=== PATIENT | male | born 1955 | race Caucasian/White ===

== ENCOUNTER 2020-08-05 14:35 | Emergency (ER) | payer BC, MEDICARE ==
--- NOTE | 2020-08-05 15:23 | EDM.PDOC ---
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 His heart was racing (checked pulse at 101) and felt like he was going to pass out. He then had non-radiating sharp left sided chest pain, which resolved after 5 minutes. He was subsequently treated in clinic. BP was 76/40, he was given IVF and sent to the ED to check a troponin. Patient feels better and has had no recurrence of the chest pain. He denies prior h/o CAD. FMHx is significant for CAD though. Denies SOB, cough, or nausea. Onset: Today Location: Reports: Chest Treatments HAND TWISTER: Reports: EKG Past Medical History - Past Health History Medical/Surgical History: Denies Medical/Surgical History ED ROS GENERAL - Review of Systems Review Of Systems: Comprehensive ROS is negative, except as noted in HPI. ED EXAM, GENERAL - Physical Exam Exam: See Below Exam Limited By: No Limitations General Appearance: Alert, WD/WN, No Apparent Distress Nose: Normal Inspection Throat/Mouth: No Airway Compromise Head: Atraumatic, Normocephalic Neck: Full Range of Motion Respiratory/Chest: No Respiratory Distress, Lungs Clear, Normal Breath Sounds, Chest Non-Tender Cardiovascular: Regular Rate, Rhythm, No Murmur GI/Abdominal: Non-Tender Back Exam: Full Range of Motion Extremities: Normal Inspection Neurological: Alert, Oriented, Normal Cognition Psychiatric: Normal Affect, Normal Mood Skin Exam: Warm, Dry, Intact #1 Interpretation EKG Date: 08/05/20 Time: 14:38 Rhythm: NSR Rate (Beats/Min): 63 [place]: Normal P-Wave: Present QRS: Normal ST-T: Normal QT: Normal Comparison: No Change (06/03/2020) Course - Vital Signs Last Recorded V/S: Last Vital Signs Temp 37.1 C 08/05/20 14:35 Pulse 66 08/05/20 14:35 Resp 18 08/05/20 14:35 BP 101/62 08/05/20 14:35 Pulse Ox 97 08/05/20 14:35 - Orders/Labs/Meds Orders: Active Orders 24 hr Category Date Time Status EKG Documentation Completion [RC] ASDIRECTED Care 08/05/20 14:41 Active CXR [Chest 1V Frontal] [CR] Stat Exams 08/05/20 14:41 Taken EKG 12 Lead [EK] Stat Ther 08/05/20 14:41 Ordered Labs: Laboratory Tests 08/05/20 08/05/20 08/05/20 Range/Units 14:50 14:50 14:50 WBC 5.1 (3.2-10.1) x10-3/uL RBC 4.37 (3.90-5.90) x10(6)uL Hgb 13.4 (12.9-17.7) g/dL Hct 40.2 (38.3-50.1) % MCV 92.0 (80.8-98.7) fL MCH 30.7 (27.0-33.3) pg MCHC 33.4 (28.7-35.3) g/dL RDW 13.5 (12.4-15.0) % Plt Count 276 (117-477) x10(3)uL MPV 7.4 (6.7-11.0) fL Neut % (Auto) 60.3 (40.3-71.8) % Lymph % (Auto) 26.4 (15.8-45.3) % Cherry % (Auto) 8.8 (5.5-15.2) % Eos % (Auto) 2.7 (0.1-6.8) % Baso % (Auto) 1.8 (0.3-3.8) % Neut # (Auto) 3.1 (1.7-6.9) x10-3/uL Lymph # (Auto) 1.4 (0.5-4.5) x10-3/uL Cherry # (Auto) 0.5 (0.0-1.2) x10-3/uL Eos # (Auto) 0.1 (0.0-0.6) x10-3/uL Baso # (Auto) 0.1 (0.0-0.3) x10-3/uL Sodium 139 (135-145) mmol/L Potassium 4.0 (3.5-5.3) mmol/L Chloride 103 (100-110) mmol/L Carbon Dioxide 27 (21-32) mmol/L BUN 10 (7-18) mg/dL Creatinine 1.3 (0.70-1.30) mg/dL Est Cr Clr Drug Dosing 55.23 mL/min Estimated GFR (MDRD) 55 L (>60) BUN/Creatinine Ratio 7.7 L (9-20) Glucose 92 (80-116) mg/dL Calcium 8.5 L (8.6-10.2) mg/dL Troponin I 4.3 (4.0-60.3) pg/mL - Radiology Interpretation Free Text/Narrative:: CXR: No acute process (ED provider interpretation) Departure - Departure Time of Disposition: 15:29 Disposition: Home, Self-Care 01 Condition: Good Clinical Impression: Near syncope, Atypical chest pain - Discharge Information *PRESCRIPTION DRUG MONITORING PROGRAM REVIEWED*: No *COPY OF PRESCRIPTION DRUG MONITORING REPORT IN PATIENT NEELA: Not Applicable Instructions: Nonspecific Chest Pain, Adult, [id number], Near-Syncope, [id number] Referrals: Steve Rand MD [Physician] - 2 Days Forms: ED Department Discharge Additional Instructions: Rest, drink plenty of fluids. Follow up with your primary physician in 2 days. Return to the ER as needed. Sepsis Event Note (ED) - Evaluation Sepsis Screening Result: No Definite Risk - Focused Exam Vital Signs: Vital Signs Temp Pulse Resp BP Pulse Ox 08/05/20 14:35 37.1 C 66 18 101/62 97 - My Orders Last 24 Hours: My Active Orders 08/05/20 14:41 EKG Documentation Completion [RC] ASDIRECTED CXR [Chest 1V Frontal] [CR] Stat EKG 12 Lead [EK] Stat - Assessment/Plan Last 24 Hours: My Active Orders 08/05/20 14:41 EKG Documentation Completion [RC] ASDIRECTED CXR [Chest 1V Frontal] [CR] Stat EKG 12 Lead [EK] Stat
--- NOTE | 2020-08-05 17:06 | CR ---
INDICATION: Left-sided chest pain. CHEST ONE VIEW: Two AP upright portable views of the chest were obtained 08/05/20 and reveal the heart to be normal in size and shape. The mediastinum was essentially unremarkable. Bony structures appear to be fairly intact. An active infiltrate or effusion was not identified. Overlying EKG leads are noted. IMPRESSION: No acute process. MTDD
== END 2020-08-05 15:51 | disposition home or self-care (01) ==
LOC: FB.ED 14:35
DX: R07.89 Other chest pain (principal); R55 Syncope and collapse
CPT/HCPCS: 36415; 71045; 80048; 84484; 85025; 93005; 93010; 99284; 99285-25

== ENCOUNTER 2020-08-30 11:19 | Emergency (ER) | payer MEDICARE ==
[2020-08-30] MEDS ORDERED: Sodium Chloride 0.9% 1,000 ML IV ONE (11:50)
--- NOTE | 2020-08-30 11:58 | EDM.PDOC ---
ED HPI GENERAL MEDICAL PROBLEM - General Chief Complaint: Chest Pain Stated Complaint: HEART COMPLICATIONS Time Seen by Provider: 08/30/20 11:20 Source of Information: Reports: Patient History Limitations: Reports: No Limitations - History of Present Illness INITIAL COMMENTS - FREE TEXT/NARRATIVE: c/o fatigue pt up at 5a, no bfast, went to work at 6:30a at [employer] where he has worked for 20y, on his feet working, hot, fans, no AC at work had a slight DUVALL on getting up today and took APAP x 2, still with slight DUVALL he drank 3 cups coffee today, no food, no other fluids in mid morning he was hot, dizzy, sweat, sob. He left work and went to walk-in clinic, saw Dr Pierre who sent him here for further evaluation temp 99.9 at clinic c/w heat exhaustion, no inc'd temp here says he is feeling better has had discomfort at one location in his mid back without radiation for past week, lifts at work, thinks he pulled something pt seen one month ago in ED for dehyradation, trop 4.3 then, HR 1001 and BP 76/40 on presentation, had L sided CP that resolved quickly then pt saw PCP Dr Gomez 1m ago after ED visit who recommended ASA 81/d which pt has not been taking no prior CV hx, has had pneumonia in the past, smokes 1/2 ppd x 20y SH: lives with sister who is not ill FH: positive for CAD in family including parents CxR 2v at clinic reviewed by Dr Cook who c/w 1m ago and dx COPD exacerbation with inc'd flattening of diaphragms, no infiltrates, no congestion not orthostatic in clinic, BP 108/48 HR 77 supine, BP 102/60 HR 82 stand, PO 97% - Related Data Allergies Allergy/AdvReac Type Severity Reaction Status Date / Time Penicillins Allergy Cannot Verified 08/30/20 11:42 Remember Home Meds: Home Meds Azithromycin 250 mg PO DAILY #4 tablet 08/30/20 [Rx] predniSONE 20 mg PO ASDIRECTED #7 tab 08/30/20 [Rx] Past Medical History - Past Health History Medical/Surgical History: Denies Medical/Surgical History HEENT History: Reports: Cataract Cardiovascular History: Reports: Other (See Below) Other Cardiovascular History: hx low BP Respiratory History: Reports: Sleep Apnea Gastrointestinal History: Reports: GERD Musculoskeletal History: Reports: Fracture Other Musculoskeletal History: hx R wrist, L 5th digit fx - Infectious Disease History Infectious Disease History: Reports: Chicken Pox, Measles, Mumps - Past Surgical History Head Surgeries/Procedures: Reports: None Musculoskeletal Surgical History: Reports: Carpal Tunnel Other Musculoskeletal Surgeries/Procedures:: R carpal tunnel, R hand surgery x 2 Social & Family History - Family History Family Medical History: No Pertinent Family History - Caffeine Use Caffeine Use: Reports: Coffee, Soda ED ROS GENERAL - Review of Systems Review Of Systems: See Below Constitutional: Reports: No Symptoms, Weakness HEENT: Reports: No Symptoms Respiratory: Reports: No Symptoms Cardiovascular: Reports: No Symptoms. Denies: Chest Pain Endocrine: Reports: No Symptoms GI/Abdominal: Reports: No Symptoms : Reports: No Symptoms Musculoskeletal: Reports: Back Pain Skin: Reports: No Symptoms Neurological: Reports: No Symptoms Psychiatric: Reports: No Symptoms Hematologic/Lymphatic: Reports: No Symptoms Immunologic: Reports: No Symptoms ED EXAM, GENERAL - Physical Exam Exam: See Below Exam Limited By: No Limitations General Appearance: Alert, WD/WN, Other (alert, pleasant, good eye contact, normal speech, nontoxic, does appear fatigued and dehydrated) Eye Exam: Bilateral Eye: EOMI, PERRL Ears: Hearing Grossly Normal Nose: Normal Inspection Throat/Mouth: Normal Inspection, Normal Lips, Normal Voice Head: Atraumatic, Normocephalic Neck: Supple, Non-Tender. No: Lymphadenopathy (R), Lymphadenopathy (L) Respiratory/Chest: No Respiratory Distress, Lungs Clear, Normal Breath Sounds, No Accessory Muscle Use, Chest Non-Tender Cardiovascular: Regular Rate, Rhythm, No Edema, No Murmur GI/Abdominal: Normal Bowel Sounds, Soft, Non-Tender, No Distention Extremities: Normal Inspection, Non-Tender, No Pedal Edema Neurological: Alert, Oriented, CN II-XII Intact, Normal Cognition, No Motor/Sensory Deficits Psychiatric: Normal Affect, Normal Mood Skin Exam: Warm, Dry, Intact, Normal Color, No Rash, Other (mild dec'd turgor UEs without tenting) Lymphatic: No Adenopathy #1 Interpretation EKG Date: 08/30/20 Time: 11:24 Rhythm: NSR Rate (Beats/Min): 78 [place]: Normal P-Wave: Present QRS: Normal ST-T: Normal QT: Normal (no change c/w clinic today and ED 08-05-20) Course - Vital Signs Last Recorded V/S: Last Vital Signs Temp 36.9 C 08/30/20 11:20 Pulse 80 08/30/20 12:17 Resp 14 08/30/20 12:17 BP 108/65 08/30/20 12:17 Pulse Ox 96 08/30/20 12:17 - Orders/Labs/Meds Orders: Active Orders 24 hr Category Date Time Status EKG Documentation Completion [RC] ASDIRECTED Care 08/30/20 11:32 Active Sodium Chloride 0.9% [Normal Saline] 1,000 ml Med 08/30/20 11:50 Ordered IV .BOLUS EKG 12 Lead [EK] Routine Ther 08/30/20 11:32 Ordered Medication Orders Sodium Chloride (Normal Saline) 1,000 mls @ 999 mls/hr IV .BOLUS ONE Stop: 08/30/20 12:50 Last Admin: 08/30/20 11:54 Dose: 999 mls/hr Documented by: SOLOMON Labs: Laboratory Tests 08/30/20 08/30/20 08/30/20 Range/Units 12:02 12:02 12:02 WBC 6.3 (3.2-10.1) x10-3/uL RBC 4.25 (3.90-5.90) x10(6)uL Hgb 13.1 (12.9-17.7) g/dL Hct 38.3 (38.3-50.1) % MCV 90.2 (80.8-98.7) fL MCH 30.7 (27.0-33.3) pg MCHC 34.1 (28.7-35.3) g/dL RDW 13.5 (12.4-15.0) % Plt Count 223 (117-477) x10(3)uL MPV 6.9 (6.7-11.0) fL Neut % (Auto) 77.2 H (40.3-71.8) % Lymph % (Auto) 11.0 L (15.8-45.3) % [place] % (Auto) 10.9 (5.5-15.2) % Eos % (Auto) 0.1 (0.1-6.8) % Baso % (Auto) 0.8 (0.3-3.8) % Neut # (Auto) 4.9 (1.7-6.9) x10-3/uL Lymph # (Auto) 0.7 (0.5-4.5) x10-3/uL Ada # (Auto) 0.7 (0.0-1.2) x10-3/uL Eos # (Auto) 0.0 (0.0-0.6) x10-3/uL Baso # (Auto) 0.1 (0.0-0.3) x10-3/uL Sodium 140 (135-145) mmol/L Potassium 4.1 (3.5-5.3) mmol/L Chloride 99 L (100-110) mmol/L Carbon Dioxide 30 (21-32) mmol/L BUN 14 (7-18) mg/dL Creatinine 1.1 (0.70-1.30) mg/dL Est Cr Clr Drug Dosing 66.11 mL/min Estimated GFR (MDRD) > 60 (>60) BUN/Creatinine Ratio 12.7 (9-20) Glucose 93 (80-116) mg/dL Calcium 8.3 L (8.6-10.2) mg/dL Magnesium 1.9 (1.8-2.5) mg/dL Total Bilirubin 0.4 (0.1-1.3) mg/dL AST 19 (5-25) IU/L ALT 25 (12-36) U/L Alkaline Phosphatase 84 (56-112) IU/L Troponin I (4.0-60.3) pg/mL C-Reactive Protein (0.5-0.9) mg/dL Total Protein 6.8 (6.0-8.0) g/dL Albumin 3.5 (3.2-4.6) g/dL Globulin 3.3 g/dL Albumin/Globulin Ratio 1.1 Urine Color Yellow (YELLOW) Urine Appearance Clear (CLEAR) Urine pH 6.0 (5.0-6.5) Ur Specific Lucas 1.010 (1.010-1.025) Urine Protein Negative (NEGATIVE) mg/dL Urine Glucose (UA) Normal (NORMAL) mg/dL Urine Ketones Negative (NEGATIVE) mg/dL Urine Occult Blood Negative (NEGATIVE) Urine Nitrite Negative (NEGATIVE) Urine Bilirubin Negative (NEGATIVE) Urine Urobilinogen Normal (NEGATIVE) mg/dL Ur Leukocyte Esterase Negative (NEGATIVE) Urine WBC 0-5 (0-5) Ur Squamous Epith Cells Occasional (NS,R,O) Urine Bacteria Few H (NS) 08/30/20 Range/Units 12:02 WBC (3.2-10.1) x10-3/uL RBC (3.90-5.90) x10(6)uL Hgb (12.9-17.7) g/dL Hct (38.3-50.1) % MCV (80.8-98.7) fL MCH (27.0-33.3) pg MCHC (28.7-35.3) g/dL RDW (12.4-15.0) % Plt Count (117-477) x10(3)uL MPV (6.7-11.0) fL Neut % (Auto) (40.3-71.8) % Lymph % (Auto) (15.8-45.3) % [place] % (Auto) (5.5-15.2) % Eos % (Auto) (0.1-6.8) % Baso % (Auto) (0.3-3.8) % Neut # (Auto) (1.7-6.9) x10-3/uL Lymph # (Auto) (0.5-4.5) x10-3/uL [place] # (Auto) (0.0-1.2) x10-3/uL Eos # (Auto) (0.0-0.6) x10-3/uL Baso # (Auto) (0.0-0.3) x10-3/uL Sodium (135-145) mmol/L Potassium (3.5-5.3) mmol/L Chloride (100-110) mmol/L Carbon Dioxide (21-32) mmol/L BUN (7-18) mg/dL Creatinine (0.70-1.30) mg/dL Est Cr Clr Drug Dosing mL/min Estimated GFR (MDRD) (>60) BUN/Creatinine Ratio (9-20) Glucose (80-116) mg/dL Calcium (8.6-10.2) mg/dL Magnesium (1.8-2.5) mg/dL Total Bilirubin (0.1-1.3) mg/dL AST (5-25) IU/L ALT (12-36) U/L Alkaline Phosphatase (56-112) IU/L Troponin I < 4.0 L (4.0-60.3) pg/mL C-Reactive Protein 3.8 H* (0.5-0.9) mg/dL Total Protein (6.0-8.0) g/dL Albumin (3.2-4.6) g/dL Globulin g/dL Albumin/Globulin Ratio Urine Color (YELLOW) Urine Appearance (CLEAR) Urine pH (5.0-6.5) Ur Specific Lucas (1.010-1.025) Urine Protein (NEGATIVE) mg/dL Urine Glucose (UA) (NORMAL) mg/dL Urine Ketones (NEGATIVE) mg/dL Urine Occult Blood (NEGATIVE) Urine Nitrite (NEGATIVE) Urine Bilirubin (NEGATIVE) Urine Urobilinogen (NEGATIVE) mg/dL Ur Leukocyte Esterase (NEGATIVE) Urine WBC (0-5) Ur Squamous Epith Cells (NS,R,O) Urine Bacteria (NS) Meds: Medications Generic Name Dose Route Start Last Admin Trade Name Freq PRN Reason Stop Dose Admin Sodium Chloride 1,000 mls @ 999 mls/hr 08/30/20 11:50 08/30/20 11:54 Normal Saline IV 08/30/20 12:50 999 mls/hr .BOLUS ONE Administration Discontinued Medications Generic Name Dose Route Start Last Admin Trade Name Freq PRN Reason Stop Dose Admin Azithromycin 500 mg 08/30/20 12:48 Azithromycin 500 Mg Tab PO 08/30/20 12:49 ONETIME ONE Methylprednisolone Sodium Succinate 125 mg 08/30/20 12:47 Methylprednisolone Sodium Succinate 125 Mg/2 Ml Sdv IVPUSH 08/30/20 12:48 ONETIME ONE - Re-Assessments/Exams Free Text/Narrative Re-Assessment/Exam: 08/30/20 12:59 COVID done in clinic today, not repeated here, no COVID noted on CxR altho is in differential RR up to 23 here in ED with PO 97% on RA, no cough observed, no dyspnea hx/PE/labs/imaging all c/w COPD exacerbation no clinical evidence of CV concerns, does have slight J-point elevation on EKG that is old, trop neg, back pain is MS and referable to chest wall, not hearts/lung Departure - Departure Time of Disposition: 12:51 Disposition: Home, Self-Care 01 Condition: Good Clinical Impression: COPD exacerbation, Elevated C-reactive protein (CRP), Current every day smoker, Mild dehydration - Discharge Information *PRESCRIPTION DRUG MONITORING PROGRAM REVIEWED*: Not Applicable *COPY OF PRESCRIPTION DRUG MONITORING REPORT IN PATIENT NEELA: Not Applicable Prescriptions: Azithromycin 250 mg PO DAILY #4 tablet predniSONE 20 mg PO ASDIRECTED #7 tab Instructions: Chronic Obstructive Pulmonary Disease Exacerbation, Rehydration, Adult, Steps to Quit Smoking Forms: ED Department Discharge, ED Return to Work/School Form Additional Instructions: Do not skip breakfast. Eat a breakfast cookie or granola bar and a piece of fruit if you are in a hurry. Drink at least 3 liters of fluids per day without caffeine or alcohol on days when you are working, at least 2 liters per day when you are at home resting. Keep in mind that caffeine is a diuretic and pulls fluids out of your body. For infection, take azithromycin 250 mg 1 tab daily for 4 days beginning tomorrow. To help with breathing and open up your airways, take prednisone 20 mg 2 tabs daily for 2 days beginning tomorrow, then 1 tab daily for 3 more days. Rest for the next days. May return to work in 4 days if you are feeling much better then. See Dr Gomez in 3 days for further recommendations. Try to quit smoking. Sepsis Event Note (ED) - Evaluation Sepsis Screening Result: No Definite Risk - Focused Exam Vital Signs: Vital Signs Temp Pulse Resp BP Pulse Ox 08/30/20 12:17 80 14 108/65 96 08/30/20 11:20 36.9 C 81 16 107/61 97 - My Orders Last 24 Hours: My Active Orders 08/30/20 11:32 EKG Documentation Completion [RC] ASDIRECTED EKG 12 Lead [EK] Routine 08/30/20 11:50 Sodium Chloride 0.9% [Normal Saline] 1,000 ml IV .BOLUS - Assessment/Plan Last 24 Hours: My Active Orders 08/30/20 11:32 EKG Documentation Completion [RC] ASDIRECTED EKG 12 Lead [EK] Routine 08/30/20 11:50 Sodium Chloride 0.9% [Normal Saline] 1,000 ml IV .BOLUS
[2020-08-30] MEDS ORDERED: methylPREDNISolone Sodium Succinate 125 MG/2 ML SDV IVPUSH ONE (12:47)
[2020-08-30] MEDS ORDERED: Azithromycin 500 MG Tab PO ONE (12:48)
== END 2020-08-30 13:07 | disposition home or self-care (01) ==
LOC: FB.ED 11:19
DX: E86.0 Dehydration (principal); J44.1 Chronic obstructive pulmonary disease with (acute) exacerbation; R79.82 Elevated C-reactive protein (CRP); F17.210 Nicotine dependence, cigarettes, uncomplicated; Z88.0 Allergy status to penicillin
CPT/HCPCS: 36415; 80053; 81001; 83735; 84484; 85025; 86140; 93005; 96374; 99285; A9270; J2930; J7030

== ENCOUNTER 2022-06-29 13:38 | Emergency (ER) | payer MEDICARE ==
[2022-06-29] MEDS ORDERED: Ketorolac 30 MG/ML SDV IVPUSH ONE (13:53)
[2022-06-29 14:24] LABS: BLOOD UREA NITROGEN,BUN 14 mg/dL (7-18); CALCIUM 8.8 mg/dL (8.6-10.2); CARBON DIOXIDE,CO2 26 mmol/L (21-32); CHLORIDE,CL 96 mmol/L (100-110); EST CRCL DRUG DOSING (CG) 68.04 mL/min; ESTIMATED GFR 82 mL/min (>60); GLUCOSE RANDOM 111 mg/dL (80-116); SODIUM,NA 131 mmol/L (135-145)
[2022-06-29 14:25] LABS: BASOPHILS ABSOLUTE AUTO 0.1 x10-3/uL (0.0-0.3); BASOPHILS PERCENT AUTO 3.5 % (0.3-3.8); EOSINOPHILS ABSOLUTE AUTO 0.1 x10-3/uL (0.0-0.6); HEMATOCRIT 36.8 % (38.3-50.1); HEMOGLOBIN 12.7 g/dL (12.9-17.7); LYMPHOCYTES ABSOLUTE AUTO 1.2 x10-3/uL (0.5-4.5); MEAN CORPUSCULAR HEMOGLOBIN 30.4 pg (27.0-33.3); MEAN CORPUSCULAR HGB CONC 34.6 g/dL (28.7-35.3); MEAN PLATELET VOLUME 7.3 fL (6.7-11.0); MONOCYTES ABSOLUTE AUTO 0.3 x10-3/uL (0.0-1.2); MONOCYTES PERCENT AUTO 8.7 % (5.5-15.2); NEUTROPHILS ABSOLUTE AUTO 1.9 x10-3/uL (1.7-6.9); NEUTROPHILS PERCENT AUTO 52.8 % (40.3-71.8); PLATELET COUNT,PLT 289 x10(3)uL (117-477); RED BLOOD CELL COUNT 4.19 x10(6)uL (3.90-5.90); RED CELL DISTRIBUTION WIDTH 13.3 % (12.4-15.0); WHITE BLOOD CELL COUNT,WBC 3.7 x10-3/uL (3.2-10.1)
[2022-06-29 14:34] LABS: TROPONIN I 4.5 pg/mL (4.0-60.3)
[2022-06-29 14:36] LABS: A/G RATIO 1.3; ALANINE AMINOTRANSFERASE,ALT 21 U/L (12-36); ALBUMIN 3.7 g/dL (3.2-4.6); ALKALINE PHOSPHATASE 79 IU/L (56-112); ASPARTATE AMNIOTRANSFERASE,AST 25 IU/L (5-25); BILIRUBIN TOTAL 0.3 mg/dL (0.1-1.3); PROTEIN TOTAL,TP 6.6 g/dL (6.0-8.0)
[2022-06-29 14:38] LABS: C-REACTIVE PROTEIN < 0.2 mg/dL (0.5-0.9)
== END 2022-06-29 16:22 | disposition home or self-care (01) ==
LOC: FB.ED 13:38
DX: S29.012A Strain of muscle and tendon of back wall of thorax, initial encounter (principal); F17.200 Nicotine dependence, unspecified, uncomplicated; Z88.0 Allergy status to penicillin; X58.XXXA Exposure to other specified factors, initial encounter; Y92.69 Other specified industrial and construction area as the place of occurrence of the external cause; Y99.0 Civilian activity done for income or pay
CPT/HCPCS: 36415; 71046; 80053; 84484; 85025; 85379; 86140; 93005; 99285

== ENCOUNTER 2022-07-21 13:34 | Emergency (ER) | payer MEDICARE ==
[2022-07-21] MEDS ORDERED: Sodium Chloride 0.9% 1,000 ML IV ONE (14:09)
[2022-07-21] MEDS ORDERED: Sodium Chloride 0.9% 10 ML Syringe FLUSH PRN (14:09)
[2022-07-21 14:19] LABS: BASOPHILS ABSOLUTE AUTO 0.1 x10-3/uL (0.0-0.3); BASOPHILS PERCENT AUTO 1.1 % (0.3-3.8); EOSINOPHILS ABSOLUTE AUTO 0.1 x10-3/uL (0.0-0.6); EOSINOPHILS PERCENT AUTO 1.9 % (0.1-6.8); HEMATOCRIT 40.1 % (38.3-50.1); HEMOGLOBIN 13.6 g/dL (12.9-17.7); LYMPHOCYTES ABSOLUTE AUTO 1.1 x10-3/uL (0.5-4.5); LYMPHOCYTES PERCENT AUTO 19.2 % (15.8-45.3); MEAN CORPUSCULAR HGB CONC 33.8 g/dL (28.7-35.3); MEAN CORPUSCULAR VOLUME 88.9 fL (80.8-98.7); MEAN PLATELET VOLUME 7.3 fL (6.7-11.0); MONOCYTES ABSOLUTE AUTO 0.5 x10-3/uL (0.0-1.2); MONOCYTES PERCENT AUTO 9.5 % (5.5-15.2); NEUTROPHILS ABSOLUTE AUTO 3.8 x10-3/uL (1.7-6.9); NEUTROPHILS PERCENT AUTO 68.3 % (40.3-71.8); PLATELET COUNT,PLT 272 x10(3)uL (117-477); RED BLOOD CELL COUNT 4.51 x10(6)uL (3.90-5.90); RED CELL DISTRIBUTION WIDTH 13.5 % (12.4-15.0); WHITE BLOOD CELL COUNT,WBC 5.6 x10-3/uL (3.2-10.1)
[2022-07-21 14:21] LABS: BLOOD UREA NITROGEN,BUN 16 mg/dL (7-18); BUN/CREATININE RATIO 13.3 (9-20); CALCIUM 9.1 mg/dL (8.6-10.2); CARBON DIOXIDE,CO2 29 mmol/L (21-32); CHLORIDE,CL 94 mmol/L (100-110); CREATININE 1.2 mg/dL (0.70-1.30); EST CRCL DRUG DOSING (CG) 55.08 mL/min; ESTIMATED GFR 66 mL/min (>60); GLUCOSE RANDOM 120 mg/dL (80-116); POTASSIUM,K 3.7 mmol/L (3.5-5.3); SODIUM,NA 130 mmol/L (135-145)
[2022-07-21 14:28] LABS: A/G RATIO 1.3; ALANINE AMINOTRANSFERASE,ALT 24 U/L (12-36); ALBUMIN 3.9 g/dL (3.2-4.6); ALKALINE PHOSPHATASE 81 IU/L (56-112); ASPARTATE AMNIOTRANSFERASE,AST 28 IU/L (5-25); BILIRUBIN TOTAL 0.4 mg/dL (0.1-1.3); MAGNESIUM 1.8 mg/dL (1.8-2.5); PROTEIN TOTAL,TP 6.9 g/dL (6.0-8.0)
[2022-07-21 15:12] LABS: BILIRUBIN,URINE NEGATIVE (NEGATIVE); GLUCOSE,URINE NORMAL (NORMAL); KETONES,URINE NEGATIVE (NEGATIVE); LEUKOCYTE ESTERASE,URINE NEGATIVE (NEGATIVE); NITRITE,URINE NEGATIVE (NEGATIVE); OCCULT BLOOD,URINE TRACE (NEGATIVE); PROTEIN,URINE NEGATIVE (NEGATIVE); UROBILINOGEN,URINE NORMAL (NEGATIVE)
[2022-07-21 15:21] LABS: APPEARANCE,URINE CLEAR (CLEAR); BACTERIA,URINE FEW (NS); COLOR,URINE YELLOW (YELLOW); RBC,URINE NOT SEEN (0-5); SQUAMOUS EPITHELIAL CELLS,UR FEW (NS,R,O); WBC,URINE 0-5 (0-5)
== END 2022-07-21 17:32 | disposition home or self-care (01) ==
LOC: FB.ED 13:34
DX: T67.5XXA Heat exhaustion, unspecified, initial encounter (principal); E86.0 Dehydration; I48.91 Unspecified atrial fibrillation; Z88.0 Allergy status to penicillin; Z72.0 Tobacco use; Z79.82 Long term (current) use of aspirin
CPT/HCPCS: 36415; 80053; 81001; 83605; 83735; 84484; 85025; 93005; 96360; 99285; J7030